=== PATIENT | female | born 1980 | race Hispanic/Latino ===

== ENCOUNTER 2017-09-27 15:44 | Emergency (ER) | payer OTHER, SELFPAY ==
[2017-09-27 16:09] LABS: Bilirubin Small (Negative); Blood, Urine Negative (Negative); Clarity Clear (Clear); Glucose, Urine (Dipstick) Negative (Negative); Leukocyte Negative (Negative); Nitrite Negative (Negative); Protein, Urine (Dipstick) Negative (Neg-Trace); Specific Gravity, Urine 1.025 (1.005-1.030); Urobilinogen 0.2 mg/dL (0.2-1.0); pH, Urine 5.5 (5.0-9.0)
[2017-09-29 22:59] LABS: Chlamydia by PCR Not Detected (NotDetected); GC by PCR Not Detected (NotDetected)
== END 2017-09-27 17:01 | disposition home or self-care (01) ==
LOC: NAV ERS 15:44
DX: O98.812 Other maternal infectious and parasitic diseases complicating pregnancy, second trimester (principal); B37.3 Candidiasis of vulva and vagina; O99.512 Diseases of the respiratory system complicating pregnancy, second trimester; J45.909 Unspecified asthma, uncomplicated; Z3A.19 19 weeks gestation of pregnancy
CPT/HCPCS: 81003; 87480; 87491; 87510; 87591; 87660; 99283

== ENCOUNTER 2017-12-09 18:50 | Emergency (ER) | payer OTHER ==
[2017-12-09] MEDS ORDERED: Silver Sulfadiazine 1% Cream 50 GM JAR ONE (19:07)
== END 2017-12-09 20:03 | disposition home or self-care (01) ==
LOC: NAV ERS 18:50
DX: O9A.213 Injury, poisoning and certain other consequences of external causes complicating pregnancy, third trimester (principal); T24.201D Burn of second degree of unspecified site of right lower limb, except ankle and foot, subsequent encounter; T23.201D Burn of second degree of right hand, unspecified site, subsequent encounter; T21.22XD Burn of second degree of abdominal wall, subsequent encounter; O99.713 Diseases of the skin and subcutaneous tissue complicating pregnancy, third trimester; L08.9 Local infection of the skin and subcutaneous tissue, unspecified; O99.513 Diseases of the respiratory system complicating pregnancy, third trimester; J45.909 Unspecified asthma, uncomplicated; Z3A.29 29 weeks gestation of pregnancy; X19.XXXD Contact with other heat and hot substances, subsequent encounter
CPT/HCPCS: 16020; 96372; J2270